=== PATIENT | female | born 1990 | race Two or more races ===

== ENCOUNTER 2018-06-29 23:24 | Emergency (ER) | payer OTHER ==
[~2018-06-29] VITALS: Ht 162.6 cm; Wt 61.2 kg
--- NOTE | 2018-06-30 00:14 | NUR ---
Pt ambulates to ER with friend with c/o anxiety/panic attack w headache. Pt states she has been feeling depressed for about a year after she lost her home. When asked if pt has any thoughts of harming herself, she states, "I don't know."
--- NOTE | 2018-06-30 00:18 | NUR ---
Suicide precautions implemented. All pt belongings out of room.
--- NOTE | 2018-06-30 00:21 | NUR ---
Dr. Kulwinder CHAWLA MD at bedside to evaluate pt.
[2018-06-30] MEDS ORDERED: METOCLOPRAMIDE HCL 10 MG/2 ML VIAL IM ONE (00:30)
[2018-06-30] MEDS ORDERED: METOCLOPRAMIDE HCL 10 MG/2 ML VIAL ONE (00:38)
[2018-06-30 00:51] LABS: *BILIRUBIN,URIN NEGATIVE (NEGATIVE); *BLOOD, URINE Trace-lysed (NEGATIVE); *COLOR,URINE YELLOW (YELLOW); *KETONES,URINE TRACE (NEGATIVE); *UROBILINOGEN,URINE 0.2 E.U./dl (NORMAL); LEUKOCYTE ESTERASE ,URINE NEGATIVE (NEGATIVE); NITRITE, URINE NEGATIVE (NEGATIVE); UGLUCOSE NEGATIVE (NEGATIVE)
[2018-06-30 00:56] LABS: BASOPHILS % (AUTO) 0.4 % (0.0-2.0); CARBON DIOXIDE 26 mmol/L (21-32); CHLORIDE 105 mmol/L (98-107); CREATININE 0.7 mg/dL (0.6-1.3); EOSINOPHILS # (AUTO) 0.1 K/uL (0.0-0.7); EOSINOPHILS % (AUTO) 1.5 % (0.0-7.0); GLUCOSE 79 mg/dL (74-106); HEMATOCRIT 39.8 % (31.2-41.9); HEMOGLOBIN 13.9 g/dL (10.9-14.3); LYMPHOCYTES # (AUTO) 3.2 K/uL (20.0-40.0); LYMPHOCYTES % (AUTO) 35.3 % (20.5-51.5); MEAN CORPUSCULAR HEMOGLOBIN 26.9 uug (24.7-32.8); MEAN CORPUSCULAR HGB CONC 35 g/dL (32.3-35.6); MEAN CORPUSCULAR VOLUME 77.2 fL (75.5-95.3); MONOCYTES # (AUTO) 0.8 K/uL (2.0-10.0); MONOCYTES % (AUTO) 8.4 % (0.0-11.0); NEUTROPHILS # (AUTO) 4.9 K/uL (1.8-8.9); NEUTROPHILS % (AUTO) 54.4 % (38.5-71.5); PLATELET COUNT (AUTO) 188 K/uL (179-408); POTASSIUM 3.7 mmol/L (3.5-5.1); RED BLOOD CELL COUNT(AUTO) 5.15 MIL/uL (3.63-4.92); UREA NITROGEN, BLOOD 13 mg/dL (7-18)
[2018-06-30 00:57] LABS: *CLARITY,URINE SLIGHTLY HAZY (CLEAR)
[2018-06-30 01:01] LABS: ACETAMINOPHEN < 2.0 ug/mL (10-30); ALANINE AMINOTRANSFERASE 20 U/L (14-59); ALKALINE PHOSPHATASE 95 U/L (50-136); ASPARTATE AMINOTRANSFERASE 13 U/L (15-37); BILIRUBIN,DIRECT 0.1 mg/dL (0.0-0.2); BILIRUBIN,TOTAL 0.5 mg/dL (0.2-1.0); TOTAL PROTEIN, SERUM 7.5 g/dL (6.4-8.2)
[2018-06-30 01:03] LABS: ETHANOL < 3 MG/DL (0-0)
[2018-06-30 01:08] LABS: BACTERIA,URINE NONE SEEN /HPF (NONE SEEN); MUCUS,URINE MANY /LPF (0-FEW); RBC,URINE 0-3 /HPF (0-3); SQUAMOUS EPITHELIAL CELL,UR MODERATE /HPF (NONE SEEN); WBC,URINE 0-3 /HPF (0-3)
--- NOTE | 2018-06-30 01:08 | NUR ---
Dr. Miramontes at bedside for update/re-evaluation.
--- NOTE | 2018-06-30 01:10 | NUR ---
Pt states headache is better, but still feels anxious. MD aware. Pending orders.
[2018-06-30 01:12] LABS: *AMPHETAMINE, URINE NEGATIVE (NEGATIVE); *BARBITURATE, URINE NEGATIVE (NEGATIVE); *CANNABINOID, URINE NEGATIVE (NEGATIVE); *COCCAINE, URINE NEGATIVE (NEGATIVE); *OPIATE, URINE NEGATIVE (NEGATIVE); *PHENCYCLIDINE SCREEN,URINE NEGATIVE (NEGATIVE)
[2018-06-30] MEDS ORDERED: LORAZEPAM 2 MG/1 ML VIAL IM ONE (01:15)
[2018-06-30] MEDS ORDERED: LORAZEPAM 2 MG/1 ML VIAL ONE (01:17)
--- NOTE | 2018-06-30 02:41 | NUR ---
Pt is sleeping in bed. Respirations even + unlabored. No acute distress noted.
--- NOTE | 2018-06-30 05:45 | NUR ---
Pt is sleeping in bed. Respirations even + unlabored. No acute distress note
--- NOTE | 2018-06-30 07:02 | NUR ---
Report given to day shift nurse.
--- NOTE | 2018-06-30 07:03 | NUR ---
Paged Carlin Sellers for PET eval. ETA 1 h
--- NOTE | 2018-06-30 07:10 | NUR ---
Patient is resting comfortably in bed with eyes closed, NAD noted.
--- NOTE | 2018-06-30 07:49 | NUR ---
Breakfast provided, pt states will eat later. No c/o pain.
--- NOTE | 2018-06-30 09:13 | NUR ---
Carlin Sellers, from PET at the bedside for Psych eval.
--- NOTE | 2018-06-30 09:22 | NUR ---
Carmen snow in [facility] - 06/30/18 at 0956 by SHANICE Bev social work associate at the bedside.
--- NOTE | 2018-06-30 09:44 | NUR ---
Pt's friend at the bedside. Per PET vacation sales advisor, pt will be discharge home.
[2018-06-30 09:58] VITALS: BP 103/60
== END 2018-06-30 10:00 | disposition home or self-care (01) ==
LOC: ER 23:26
DX: F41.1 Generalized anxiety disorder (principal); F43.0 Acute stress reaction; R51 Headache; F32.9 Major depressive disorder, single episode, unspecified; J45.909 Unspecified asthma, uncomplicated
CPT/HCPCS: 36415; 80048; 80076; 80307; 81001; 84702; 85025; 96372 ×2; 99284; G0480 ×2; G0481; J2060; J2765; A4663